=== PATIENT | female | born 1945 | race Caucasian/White ===

== ENCOUNTER → 2017-08-04 | Outpatient (CLI) | payer OTHER, MEDICARE | LOC: BMCIMAGING 13:26 | PROVIDERS: ATTEND Family Medicine | DX: M79.604 Pain in right leg (principal); M25.562 Pain in left knee ==

== ENCOUNTER → 2017-08-06 | Outpatient (CLI) | payer OTHER, MEDICARE | LOC: BHFA 14:00 | PROVIDERS: ATTEND Internal Medicine Cardiovascular Disease | DX: R60.9 Edema, unspecified (principal); I34.1 Nonrheumatic mitral (valve) prolapse ==

== ENCOUNTER → 2017-08-25 | Outpatient (CLI) | payer OTHER, MEDICARE | LOC: FIMAGING 07:28 | PROVIDERS: ATTEND Radiology Diagnostic Radiology | DX: I87.2 Venous insufficiency (chronic) (peripheral) (principal); I83.93 Asymptomatic varicose veins of bilateral lower extremities ==

== ENCOUNTER → 2017-08-28 | Outpatient (CLI) | payer OTHER, MEDICARE | LOC: FIMAGING 10:07 | PROVIDERS: ATTEND Family Medicine | DX: R16.0 Hepatomegaly, not elsewhere classified (principal); K80.20 Calculus of gallbladder without cholecystitis without obstruction ==

== ENCOUNTER 2017-11-02 08:18 | Day surgery (SDC) | payer OTHER, MEDICARE ==
[2017-11-02] MEDS ORDERED: ceFAZolin 2 GM/SWFI 2 GM/20 ML SYR IVP ONE (08:22)
[2017-11-02] MEDS ORDERED: HEPARIN 10,000 UNIT/10 ML MDV IVP PRN (08:22)
[2017-11-02] MEDS ORDERED: MEPERIDINE 25 MG/ML SYR IVP PRN (08:22)
[2017-11-02] MEDS ORDERED: ALTEPLASE 2 MG VIAL IVP PRN (08:22)
[2017-11-02] MEDS ORDERED: ONDANSETRON 4 MG/2 ML VIAL IVP ONE (08:22)
[2017-11-02] MEDS ORDERED: NALOXONE HCL 0.4 MG/ML INJ IVP PRN (08:22)
[2017-11-02] MEDS ORDERED: MIDAZOLAM 2 MG/2 ML VIAL IVP PRN (08:22)
[2017-11-02] MEDS ORDERED: PROTAMINE SULFATE 50 MG/5 ML VIAL IVP PRN (08:22)
[2017-11-02] MEDS ORDERED: GLUCAGON HCL 1 MG VIAL IVP PRN (08:22)
[2017-11-02] MEDS ORDERED: FLUMAZENIL 0.5 MG/5 ML MDV IVP PRN (08:22)
[2017-11-02] MEDS ORDERED: fentaNYL 100 MCG/2 ML INJ IVP PRN (08:22)
[2017-11-02] MEDS ORDERED: NS 1,000 ML IV ONE (08:22)
[2017-11-02] MEDS ORDERED: SODIUM TETRADECYL SULFATE 3% 2 ML VIAL IV ONE (08:58)
[2017-11-02] MEDS ORDERED: LIDO/EPI 1% **for epidural** 30 ML SDV ONE (08:58)
[2017-11-02] MEDS ORDERED: HYDROmorphONE/DILAUDID 2 MG/ML INJ ONE (09:25)
[2017-11-02] MEDS ORDERED: MIDAZOLAM 2 MG/2 ML VIAL ONE (09:25)
[2017-11-02] MEDS ORDERED: FLUMAZENIL 0.5 MG/5 ML MDV IVP ONE (09:25)
--- NOTE | 2017-11-02 09:37 | PDGENHP ---
History & Physical Chief Complaint: BILATERAL LEG VARICOSITIES History of Present Illness: PRESENTED FOR DISCUSSION FOR SYMTOMATIC VARICOSITIES. SEE PRIOR ULTRASOUND AND CONSULT FOR DETAILS. Pertinent Past, Social, Family History: N/A Relevant Physical Exam: NO CHANGE IN VARICOSITIES BELOW KNEE ON BOTH LEGS. Cardiorespiratory Assessment: RRR, CTA
--- NOTE | 2017-11-02 09:38 | PDPROPOC ---
Sedation Plan of Care Sedation Plan of Care: vital signs stable, mental status noted (A), patient educated of risks, benefits, alternatives, patient can tolerate sedation ASA Classification: ASA 2 Planned drugs: fentanyl, midazolam Mallampati Score: Class 3 Mallampati Reference Image: Patient passed 3-3-2 rule?: Yes
[2017-11-02] MEDS ORDERED: IBUPROFEN 200 MG TAB PO ONE ×2 (10:47→12:18)
[2017-11-02] MEDS ORDERED: ONDANSETRON DISINTEGRATING 4 MG TAB PO PRN (10:47)
[2017-11-02] MEDS ORDERED: HYDROCODONE/APAP 5/325 TAB PO PRN (10:47)
[2017-11-02] MEDS ORDERED: ONDANSETRON 4 MG/2 ML VIAL IVP PRN (10:47)
--- NOTE | 2017-11-02 10:59 | PDRADPN ---
Radiology Procedure Note Date of Procedure: 11/02/17 Radiologist: Yarelis Manzo Anesthesia: IV Sedation (FENTANYL AND VERSED) Pre-op Diagnosis: BILATERAL VARICOSITIES Post-op Diagnosis: SAME Indication: PERSISTANT SWELLING Procedure: BILATERAL SCLEROTHERAPY AND LASER ABLATION Inf/Abcess present in the surg proc area at time of surgery?: No Depth: Superfical (Skin SQ) Complications: NONE
[2017-11-02] MEDS ORDERED: NS 1,000 ML IV SCH (11:00)
[2017-11-02 11:16] VITALS: RESP 18
[2017-11-02 11:18] VITALS: PULSE 75
[2017-11-02] MEDS ORDERED: ONDANSETRON 4 MG/2 ML VIAL ONE (12:18)
[2017-11-02 12:48] VITALS: BP 118/64
[2017-11-02 12:51] VITALS: TEMP 97.5; O2SAT 99
== END 2017-11-02 12:40 | disposition home or self-care (01) ==
LOC: FIMAGING 08:18
PROVIDERS: ATTEND Radiology Diagnostic Radiology
PROC: 06LP3ZZ Occlusion of Right Saphenous Vein, Percutaneous Approach (ICD-10-PCS; principal; 2017-11-02 10:50)
PROC: 3E033TZ Introduction of Destructive Agent into Peripheral Vein, Percutaneous Approach (ICD-10-PCS; principal; 2017-11-02 10:50)
PROC: 065Q3ZZ Destruction of Left Saphenous Vein, Percutaneous Approach (ICD-10-PCS; principal; 2017-11-02 10:50)
DX: I83.893 Varicose veins of bilateral lower extremities with other complications (principal)
CPT/HCPCS: J0690; J1170; J2250; J2405

== ENCOUNTER → 2017-12-01 | Outpatient (CLI) | payer OTHER, MEDICARE | LOC: FIMAGING 13:15 | PROVIDERS: ATTEND Radiology Diagnostic Radiology | DX: I83.893 Varicose veins of bilateral lower extremities with other complications (principal); I80.02 Phlebitis and thrombophlebitis of superficial vessels of left lower extremity; R60.9 Edema, unspecified ==

== ENCOUNTER → 2018-09-22 | Outpatient (CLI) | payer OTHER, MEDICARE | LOC: BHFA 11:00 | PROVIDERS: ATTEND Internal Medicine Cardiovascular Disease | DX: R01.1 Cardiac murmur, unspecified (principal); I73.9 Peripheral vascular disease, unspecified; I05.9 Rheumatic mitral valve disease, unspecified; M79.661 Pain in right lower leg; M79.662 Pain in left lower leg ==

== ENCOUNTER → 2018-09-30 | Outpatient (CLI) | payer OTHER, MEDICARE | LOC: BHFA 15:30 | PROVIDERS: ATTEND Internal Medicine Cardiovascular Disease | DX: I73.9 Peripheral vascular disease, unspecified (principal); M79.661 Pain in right lower leg; M79.662 Pain in left lower leg; R60.0 Localized edema ==

== ENCOUNTER → 2018-11-11 | Outpatient (CLI) | payer OTHER, MEDICARE | LOC: BHFA 13:15 | PROVIDERS: ATTEND Internal Medicine Cardiovascular Disease | DX: R01.1 Cardiac murmur, unspecified (principal); I10 Essential (primary) hypertension ==

== ENCOUNTER → 2018-11-26 | Outpatient (CLI) | payer OTHER, MEDICARE | LOC: BHFA 11:30 | PROVIDERS: ATTEND Internal Medicine Cardiovascular Disease | DX: R01.1 Cardiac murmur, unspecified (principal); I10 Essential (primary) hypertension ==

== ENCOUNTER 2018-12-05 13:43 | Emergency (ER) | payer OTHER, MEDICARE ==
[2018-12-05] MEDS ORDERED: NS 1,000 ML IV ONE (14:35)
[2018-12-05 14:57] LABS: PLATELET COUNT 267 10^3/uL (150-400)
--- NOTE | 2018-12-05 15:22 | EDPHY ---
H & P Time Seen by Provider: 12/05/18 14:13 HPI/ROS: CHIEF COMPLAINT: Low blood pressure HISTORY OF PRESENT ILLNESS: 73-year-old female presents emergency department reporting that she has had 3 blood pressure readings with a systolic of 90 associated with lightheadedness and near-syncope. Patient states that she had a treadmill test performed in mid October which was presumably negative by her report. She describes an episode of syncope that evening which she was not seen in the hospital. She states that she has been having chest pressure constantly since the end of October. Patient has been checking her blood pressure several times a day. Today's readings of 90 systolic were not associated with syncope although she does states she was feeling poorly. Patient denies any vomiting or diarrhea, no urinary complaints, no cough, no fever, no headache. REVIEW OF SYSTEMS: A comprehensive 10 system review of systems was reviewed and is otherwise negative aside from elements mentioned in the history of present illness and medical decision making. PAST MEDICAL HISTORY: Hypothyroidism, on [place] Thyroid. Also taking acyclovir for "shingles". SOCIAL HISTORY: Lives alone, uses medical marijuana intermittently, denies alcohol use. VITAL SIGNS Reviewed by me. Blood pressure 123/74. GENERAL: Somewhat thin female, quiet, reports feeling poorly. Very concerned regarding her blood pressure readings. HEENT: Atraumatic. Eyes: No icterus, no injection. Mouth: moist mucous membranes. No erythema or lesions. Neck: supple with no adenopathy. LUNGS: Clear to auscultation bilaterally, no wheezes, rhonchi or rales. CARDIAC: Regular rate and rhythm, no rubs, murmurs or gallops. ABDOMEN: Soft, nontender, nondistended, bowel sounds normal. BACK: No CVA tenderness. EXTREMITIES: No trauma. No edema. Range of motion is normal throughout. NEURO: Alert and oriented, grossly nonfocal. SKIN: Scattered macular rash on the back. No vesicles seen.. PSYCHIATRIC: Normal mentation, no agitation. Smoking Status: Never smoked Constitutional: Initial Vital Signs Temperature (C) 37 C 12/05/18 13:48 Heart Rate 93 12/05/18 13:48 Respiratory Rate 16 12/05/18 13:48 Blood Pressure 123/74 H 12/05/18 13:48 O2 Sat (%) 94 12/05/18 13:48 O2 Delivery Mode Room Air Allergies/Adverse Reactions: fentanyl Allergy (Intermediate, Verified 12/05/18 13:47) Hives aspirin Allergy (Mild, Verified 12/05/18 13:47) stomach distress Home Medications: Medication Instructions Recorded Supplements Only 07/19/11 [place] Thyroid 45 mg PO DAILY 10/26/17 Acyclovir 12/05/18 Medical Decision Making - Diagnostics EKG Interpretation: 12-LEAD EKG: Please see the full report in [facility]. My interpretation: Sinus rhythm, no ischemic changes ED Course/Re-evaluation: 73-year-old female presents with concerns regarding her pressure. Patient has an appointment with her arabic professor, Dr. Hastings, in 3 days. She noticed today that she was not feeling well that her blood pressure was 90s over 60s. and she felt a little lightheaded but did not faint. She tells me she has previously had a treadmill stress test which was negative at the end of October. - Data Points Laboratory Results: Laboratory Results 12/05/18 14:45 12/05/18 14:45 12/05/18 12/05/18 12/05/18 14:47 14:45 14:45 WBC 6.73 10^3/uL 10^3/uL (3.80-9.50) RBC 4.78 10^6/uL 10^6/uL (4.18-5.33) Hgb 14.5 g/dL g/dL (12.6-16.3) Hct 42.4 % % (38.0-47.0) MCV 88.7 fL fL (81.5-99.8) MCH 30.3 pg pg (27.9-34.1) MCHC 34.2 g/dL g/dL (32.4-36.7) RDW 13.8 % % (11.5-15.2) Plt Count 267 10^3/uL 10^3/uL (150-400) MPV 10.4 fL fL (8.7-11.7) Neut % (Auto) 69.3 % % (39.3-74.2) Lymph % (Auto) 20.4 % % (15.0-45.0) Mason % (Auto) 8.0 % % (4.5-13.0) Eos % (Auto) 1.2 % % (0.6-7.6) Baso % (Auto) 1.0 % % (0.3-1.7) Nucleat RBC Rel Count 0.0 % % (0.0-0.2) Absolute Neuts (auto) 4.66 10^3/uL 10^3/uL (1.70-6.50) Absolute Lymphs (auto) 1.37 10^3/uL 10^3/uL (1.00-3.00) Absolute Monos (auto) 0.54 10^3/uL 10^3/uL (0.30-0.80) Absolute Eos (auto) 0.08 10^3/uL 10^3/uL (0.03-0.40) Absolute Basos (auto) 0.07 10^3/uL 10^3/uL (0.02-0.10) Absolute Nucleated RBC 0.00 10^3/uL 10^3/uL (0-0.01) Immature Gran % 0.1 % % (0.0-1.1) Immature Gran # 0.01 10^3/uL 10^3/uL (0.00-0.10) Sodium 139 mEq/L mEq/L (135-145) Potassium 3.9 mEq/L mEq/L (3.5-5.2) Chloride 107 mEq/L mEq/L (97-110) Carbon Dioxide 26 mEq/l mEq/l (22-31) Anion Gap 6 mEq/L mEq/L (6-14) BUN 17 mg/dL mg/dL (7-23) Creatinine 0.7 mg/dL mg/dL (0.6-1.0) Estimated GFR > 60 Glucose 94 mg/dL mg/dL (70-100) Calcium 10.0 mg/dL mg/dL (8.5-10.4) POC Troponin I 0.00 ng/mL ng/mL (0.00-0.08) Medications Given: Discontinued Medications Sodium Chloride (Ns) 1,000 mls @ 0 mls/hr IV ONCE ONE; Wide Open PRN Reason: Protocol Stop: 12/05/18 14:36 Last Admin: 12/05/18 14:58 Dose: 1,000 mls Point of Care Test Results: Chemistry 12/05/18 14:47 POC Troponin I 0.00 ng/mL ng/mL (0.00-0.08) Departure - Departure Disposition: Home, Routine, Self-Care Clinical Impression: History of hypotension Condition: Good Instructions: Dehydration (ED), Hypotension (ED) Additional Instructions: Please be sure to eat a well-balanced diet. Drink plenty of fluid. You may continue to monitor your blood pressure. Please follow up with your arabic professor as previously directed. Return to the emergency department or seek care urgently if you developed chest pain, severe dizziness or lightheadedness, fainting, shortness of breath, or other concerns. Referrals: CINTHIA FERGUSON [Primary Care Provider] - As per Instructions
--- NOTE | 2018-12-05 15:59 | CPEKG ---
Test Reason : OPEN Blood Pressure : / mmHG Vent. Rate : 073 BPM Atrial Rate : 074 BPM P-R Int : 193 ms QRS Dur : 074 ms QT Int : 388 ms P-R-T Axes : 066 050 067 degrees QTc Int : 428 ms Sinus rhythm Probable left atrial enlargement Confirmed by Swetha Holliday ([id number]) on 12/05/2018 3:58:52 PM Referred By: Confirmed By:Swetha Holliday
--- NOTE | 2018-12-05 16:58 | ASMTCMCOM ---
CM Note CM Note Notes: Requested to speak to patient re: local mental health resources, etc. 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 Pt states she does not have a counselor or mental health provider "but I probably should." This CM provided pt w/various [facility] resources. Pt also mentioned she might want to switch to a new PCP. This CM also provided pt w/the [facility] pamphlet. 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 So when I don't feel good, it is hard to do that." Pt very pleasant and appreciative. CM available for further assistance if needed. Date Signed: 12/05/2018 04:58 PM Electronically Signed By:Ansley Terrazas RN
[2018-12-05 17:09] VITALS: BP 145/64
== END 2018-12-05 17:09 | disposition home or self-care (01) ==
DX: I95.9 Hypotension, unspecified (principal); J43.9 Emphysema, unspecified; E86.9 Volume depletion, unspecified
CPT/HCPCS: 84484-ER